=== PATIENT | male | born 1930 | race Caucasian/White ===

== ENCOUNTER 2018-03-14 15:00 | Inpatient (IN) ==
--- NOTE | 2018-03-15 19:31 | Internal Med History&Physical ---
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 Now has residual right hang grasp diminished and decreased strength right lower extremity and balance and fatigue issues. He will have PT, OT, RT and speech therapy. He is anticoagulated with Eliquis and the dose was recently increased. 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 He is declining in his functionality particularly of the hands and lower extremities. Prior to his CVA he was using a walker, able to drive his car, mow his lawn and ride his Gator. His CMT is an additional debility in addition to his recent CVA. (3) Atrial fibrillation Current visit: Yes Status: Chronic Chronic atrial fibrillation and is anticoagulated with Eliquis and the dose was increased from 2.5 twice a day to 5 mg twice a day. No angina or CHF or palpitations or symptoms related to his heart. His echocardiogram showed 65% ejection fraction and mild left to right shunt on bubble test. Qualifiers: Atrial fibrillation type: chronic Qualified Code(s): I48.2 - Chronic atrial fibrillation (4) Coronary artery disease Current visit: Yes Status: Chronic Known history of carotid artery disease and previous stent placement. Previously he was on Plavix that was discontinued by his refrigerator room clerk a few months ago. Remains on Eliquis. Previously he was on Vytorin. This apparently was discontinued when he was at [facility]. I am not sure why. I would recommend that he restart it but will defer judgment to the specialist for now. No angina or CHF or any cardiac symptoms noted Qualifiers: Coronary Disease-Associated Artery/Lesion type: unspecified vessel or lesion type [place] vs. transplanted heart: [place] heart Associated angina: without angina Qualified Code(s): I25.10 - Atherosclerotic heart disease of [place] coronary artery without angina pectoris (5) Hypertension Current visit: Yes Status: Chronic Patient has a history of hypertension. Previously his medication list also included triamterene hydrochlorothiazide and enalapril. Those were discontinued at [facility] on transfer. He may have had some hypotension. We will monitor his blood pressure and restart if indicated. Qualifiers: Hypertension type: essential hypertension Qualified Code(s): I10 - Essential (primary) hypertension (6) Obstructive sleep apnea treated with BiPAP Current visit: Yes Status: Chronic Patient has a history of sleep apnea and uses BiPAP. He will use his machine from home. (7) Swelling of joint, hand, right Current visit: Yes Status: Acute Patient has noticed warmth and swelling in his index MP joint. No history of trauma. He thinks he may have had some gout in his right foot previously. Consideration includes osteoarthritis, gout, acute rheumatoid arthritis. Dr. Galvez will be seeing the patient and we will get his opinion. (8) On apixaban therapy Current visit: No Status: Acute Internal Medicine - H&P: HPI Chief complaint: I am here for therapy after my stroke Admitted From: Hospital to Hospital Transfer Plans for Post Hospital Care: Home History of present illness: Mr. Joshi is a 87 year old male with a known history of Qkkysdu-Bccti-Syksq syndrome, atrial fibrillation, previous CVA, hypertension, coronary artery disease and sleep apnea. Last Wednesday on his 's birthday and having been to [place] for a meal he came home and he rode the gator to the trash can as he did not feel well. And then when he was in the bathroom he felt wobbly and unsteady and fell. He was on his knees and he crawled to the family room as he could not get up. He experienced right leg weakness, right arm and hand weakness, slurred speech and and imbalance. He was brought to the emergency room via squad. He eventually was transferred to [facility]. During that workup use found to have had a left frontal CVA and a right cerebellar lacunar with small hemorrhage formation. His slurred speech basically resolved, he has gained some strength back on his right upper and lower extremities. However he is unable to walk or make transfers from the wheelchair to the bed, etc. At [facility] they increased his Eliquis. Most of his medications were continued. He is having no cardiac, respiratory, GI or symptoms acutely. Prior to this event he had ongoing generalized weakness from Elhugax-Srufx-Pftey syndrome but was still able to use a walker, ambulate well enough to drive a car, operate his gator, etc. Past Med Surg Social Fam HX - Past Medical History Medical history: arthritis, atrial fibrillation, coronary artery disease, CVA, hypertension, TIA, other (History of Chdnqij-Grjwp-Esozj syndrome) Additional medical history: CMT Psychiatric history: no psych history - Past Surgical History Surgical History: orthopedic, other (Back surgery 1990, arthroscopic knee surgery 1981, right knee replacement 1998, left knee surgery partial replacement 2006) Additional surgical history: LT KNEE SURG - Social History Smoking Status: Former smoker Smokeless Tobacco Status: No Alcohol use: none Drug use: none Occupational status: retired Current living situation: With Family Activity Level: Uses cane/walker - Family History Father Living Status: Age at : 74 Cause of : Suicide Hx Family Cardiac Disorders: Yes (brothers) Hx Family Respiratory Disorders: No Hx Family Cancer: Yes (brother) Hx Family Endocrine Disorder: Yes (father) Hx Family Neuromuscular Disorders: Yes (nephew,self) Hx Family Neurologic Disorders: Yes (nephew,self,cousins) Hx Family HEENT Disorders: No Hx Family Psychosocial Disorders: Yes (Depression, suicide) Mother Living Status: Age at : 80 Cause of : Stroke Internal Medicine - H&P: Meds Calcium Carbonate [Calcium] 600 mg PO DAILY 06/29/16 [History] Cyanocobalamin (Vitamin B-12) [Vitamin B12] 5,000 mcg PO DAILY 06/29/16 [History ] Docusate Sodium [Dok] 100 mg PO DAILY 06/29/16 [History] Doxazosin Mesylate [Cardura] 2 mg PO HS 06/29/16 [History] Metoprolol [Lopressor] 25 mg PO DAILY 06/29/16 [History] Multivitamin [Multi-Day Vitamins] 1 each PO DAILY 06/29/16 [History] Potassium Chloride [K-Tab ER] 10 meq PO DAILY 06/29/16 [History] Pregabalin [Lyrica] 75 mg PO BID 06/29/16 [History] raNITIdine HCl [Zantac] 150 mg PO BID 06/29/16 [History] amLODIPine [Norvasc] 5 mg PO DAILY 10/05/17 [History] Apixaban [Eliquis] 5 mg PO BID 03/15/18 [History] 3 Allergy/AdvReac Type Severity Reaction Status Date / Time No Known Allergies Allergy Verified 10/05/17 11:04 - Constitutional Constitutional: weakness (Generalized weakness from CMT with added weakness in right upper lower extremity as in history of present illness), no fever(s), no night sweats - EENT Eyes: no blurry vision, no change in vision, no diplopia Ears: no ear discharge, no ear pain Nose, mouth and throat: other (Thinks his speech is back to normal), no change in voice, no dysphagia, no hoarseness, no sore throat - Cardiovascular Cardiovascular ROS IM: no chest pain, no dyspnea, no dyspnea on exertion, no edema, no palpitations - Respiratory Respiratory: no dyspnea, no hemoptysis, no dyspnea on exertion, no chest congestion - Gastrointestinal Gastrointestinal: no constipation, no diarrhea - Genitourinary Genitourinary ROS male: difficulty urinating, no urinary frequency, no urinary urgency - Musculoskeletal Musculoskeletal ROS IM: as per HPI, muscle weakness - Integumentary Integumentary IM: no rash - Neurological Neurological ROS: as per HPI, abnormal gait, focal weakness, no abnormal speech , no confusion, no loss of vision, no radicular pain, no tremor(s) - Constitutional Vitals: Temp Pulse Resp BP Pulse Ox 99.7 F H 99 16 137/77 95 03/15/18 19:15 03/15/18 19:15 03/15/18 19:15 03/15/18 19:15 03/15/18 19:15 General appearance: Present: A&O X 3, no acute distress, answers questions appropriately - Head Head exam: Present: atraumatic, normal inspection - Eye Eye exam: Present: EOMI. Absent: scleral icterus - ENT ENT exam: Present: mucous membranes moist, normal oropharynx, TM's normal bilaterally - Neck Neck exam general surgery: Absent: lymphadenopathy, tenderness, nuchal rigidity , thyromegaly - Respiratory Respiratory exam: Present: CTAB. Absent: respiratory distress - Cardiovascular Cardiovascular exam: Present: irregular rhythm, +S1, +S2. Absent: systolic murmur - GI/Abdominal GI/Abdominal exam: Present: soft. Absent: hepatomegaly, tenderness - Extremities Exam Extremities exam: Present: joint swelling (Right index finger at MP joint is a bit warm and swollen and boggy. He has generalized edema/swelling over the dorsum of the hand as well). Absent: calf tenderness, pedal edema Additional comments: Generalized atrophy of both hands from his chronic CMT. - Neurological Exam Neurological exam: Present: alert, CN II-XII intact, oriented X3. Absent: facial droop, speech deficit Additional comments: His speech appears to be normal with good articulation, his facial expressions appear to be different somehow when he speaks compared to his baseline. No unilateral deficit. Both hands show decreased hand grasp the right worse than left compared to his baseline with CMT. Lower extremities show the right quads and hip flexor is weaker on the right side compared to left side. Full extension at the knee in seated position but slightly weaker on the right lower extremity. He has bilateral foot drop. Internal Med - H&P Results - Labs CBC & Chem 7: 03/17/18 05:05 03/17/18 05:05
[2018-03-15] MEDS: Famotidine 20 MG TABLET PO SCH (20:51)
[2018-03-15] MEDS: Apixaban 2.5 MG TABLET PO SCH (20:51)
[2018-03-15] MEDS: Pregabalin 75 MG CAPSULE PO SCH (20:51)
[2018-03-16] MEDS: Multivit/Ca/Min/Fe/FA 1 TAB TABLET PO SCH (09:29)
[2018-03-16] MEDS: Pregabalin 75 MG CAPSULE PO SCH ×2 (09:29→19:42)
[2018-03-16] MEDS: Apixaban 2.5 MG TABLET PO SCH ×2 (09:29→19:42)
[2018-03-16] MEDS: Famotidine 20 MG TABLET PO SCH ×2 (09:29→19:42)
[2018-03-16] MEDS: amLODIPine 5 MG TABLET PO SCH (09:29)
--- NOTE | 2018-03-16 10:28 | Internal Med Progress Note ---
Date of Encounter: 03/16/18 Time of Encounter: 10:28 - Assessment and plan (1) Cerebrovascular accident Current Visit: Yes Status: Acute Assessment and plan: He feels that he is doing better with physical therapy and occupational therapy. He still is unsteady on his feet and cannot walk with a walker or do transfers from bed to wheelchair and vice versa. No new changes neurologically. Qualifiers: CVA mechanism: embolism Precerebral and cerebral artery: anterior cerebral artery Laterality of affected vessel: left Qualified Code(s): I63.422 - Cerebral infarction due to embolism of left anterior cerebral artery (2) Charcot Natali Tooth muscular atrophy Current Visit: Yes Status: Chronic (3) Atrial fibrillation Current Visit: Yes Status: Chronic Assessment and plan: No angina or CHF. Rate controlled. Asymptomatic. Qualifiers: Atrial fibrillation type: chronic Qualified Code(s): I48.2 - Chronic atrial fibrillation (4) Coronary artery disease Current Visit: Yes Status: Chronic Assessment and plan: No angina or CHF. Atrial fibrillation is controlled. Qualifiers: Coronary Disease-Associated Artery/Lesion type: unspecified vessel or lesion type [place] vs. transplanted heart: [place] heart Associated angina: without angina Qualified Code(s): I25.10 - Atherosclerotic heart disease of [place] coronary artery without angina pectoris (5) Hypertension Current Visit: Yes Status: Chronic Assessment and plan: Pressure is under good control. We will continue to monitor as his triamterene hydrochlorothiazide and enalapril were held on his transfer from [place] Qualifiers: Hypertension type: essential hypertension Qualified Code(s): I10 - Essential (primary) hypertension (6) Obstructive sleep apnea treated with BiPAP Current Visit: Yes Status: Chronic (7) Swelling of joint, hand, right Current Visit: Yes Status: Acute Assessment and plan: This is stable. We will have Dr. Galvez check him. (8) On apixaban therapy Current Visit: No Status: Acute - Subjective Interval history: Patient states he slept like a log last night. He denies any cardiac or respiratory symptoms. He thinks his right hand is weaker. He thinks it is from CMT. He is now thinking that he did have some weakness in the right upper extremity in addition to the right lower extremity with his acute CVA. Denies any speech or swallowing problems this morning. - Constitutional Vitals: Temp Pulse Resp BP Pulse Ox 98.5 F 73 16 100/54 97 03/16/18 07:30 03/16/18 07:30 03/16/18 07:30 03/16/18 07:30 03/16/18 07:30 General appearance: Present: A&O X 3, no acute distress - Respiratory Respiratory exam: Present: CTAB - Cardiovascular Cardiovascular exam: Present: irregular rhythm, +S1, +S2 - Extremities Exam Additional comments: He is wearing his braces on both lower extremities. His hands show chronic atrophy from CMT. His right hand grasp is slightly less than the left and both are weak. He cannot make a full fist. Lower extremities as tested in seated position show right quads to be weaker than the left at about 3/5. Able to extend at the knee in seated position bilaterally - Neurological Exam Neurological exam: Present: CN II-XII intact (Speech appears normal.) Additional comments: See the extremity examination. Internal Medicine: Result - Labs CBC & Chem 7: 03/17/18 05:05 03/17/18 05:05 Consult Discharge Plan - Plan Referrals: Tee Gasca MD [Primary Care Provider] -
[2018-03-16] MEDS ORDERED: Menthol 9.1 MG LOZENGE PO PRN (18:41)
[2018-03-17 05:40] LABS: Basophils % 0.5 %; Eosinophils # 0.3 K/mcL (0.0-0.6); Eosinophils % 4.1 %; Hematocrit 31.8 % (37.5-50.1); Hemoglobin 10.7 g/dL (12.9-16.9); Immature Granulocytes % 0.3 % (0-4); Lymphocytes # 1.4 K/mcL (0.6-4.6); Mean Corpuscular HGB Conc 33.6 g/dL (31.6-35.5); Mean Corpuscular Hemoglobin 29.6 pg (28.0-33.3); Mean Corpuscular Volume 87.8 fL (83.0-100.0); Mean Platelet Volume 11.1 fL (9.4-12.4); Monocytes # 0.6 K/mcL (0.0-1.3); Monocytes % 7.1 %; Neutrophils # 5.4 K/mcL (1.6-8.9); Platelet Count 173 K/mcL (140-400); Red Blood Count 3.62 M/mcL (4.19-5.50); Red Cell Distribution Width 14.1 % (11.5-14.5)
[2018-03-17 05:58] LABS: BUN/Creatinine Ratio 25 (6-26); Blood Urea Nitrogen 20 mg/dL (8-23); Calcium 8.8 mg/dL (8.6-10.3); Carbon Dioxide 27 mEq/L (23-29); Chloride 101 mEq/L (98-107); Glucose 111 mg/dL (70-105); Osmolality,Calculated 281 (280-300); Potassium 3.2 mEq/L (3.5-5.1); Sodium 134 mEq/L (136-145); eGFR For African Americans > 60 (> 60); eGFR For Non-African Americans > 60 (> 60)
[2018-03-17] MEDS: Famotidine 20 MG TABLET PO SCH ×2 (08:53→21:00)
[2018-03-17] MEDS: Apixaban 2.5 MG TABLET PO SCH ×2 (08:53→21:00)
[2018-03-17] MEDS: amLODIPine 5 MG TABLET PO SCH (08:53)
[2018-03-17] MEDS: Pregabalin 75 MG CAPSULE PO SCH ×2 (08:54→21:00)
[2018-03-17] MEDS: Multivit/Ca/Min/Fe/FA 1 TAB TABLET PO SCH (08:54)
--- NOTE | 2018-03-17 17:20 | Physcial Medicine-Consult Note ---
Date of Encounter: 03/17/18 Time of Encounter: 17:16 Physical Medicine - AP (1) Cerebrovascular accident Status: Acute Assessment and plan: Good start with therapies. Feels steady in the parallel bars. Continue Rehab. Swelling in right hand. Will check xray. Looks like gout and he thinks he's had gout in the past. Code(s): I63.9 - Cerebral infarction, unspecified SNOMED Code(s): 799645084 Physical Medicine - HPI - Data of Consult Requesting Physician: Tee Gasca MD Primary Care Provider: Tee Gasca MD - Consult Narrative History of present illness: Mr. Joshi is a 87 year old RH male admitted for rehab following a left frontal CVA and right cerebellar lacune with small hemmorrhagic transformation. He is complaining of right hand discomfort and admits to diminished sensation. He is aware of coughing after meals. He has underlying Charcot-Natali- Tooth disease with disyal LE and UE muscle wasting. CC: Tee Gasca MD Past Med Surg Social Fam HX - Past Medical History Attestation: Yes The following information was validated with the patient. Medical history: arthritis, atrial fibrillation, coronary artery disease, CVA, hypertension, migraine, TIA, other Additional medical history: CMT Psychiatric history: no psych history - Past Surgical History Additional surgical history: LT KNEE SURG - Social History Smoking Status: Former smoker Smokeless Tobacco Status: No Alcohol use: none Drug use: none - Family History Father Living Status: Hx Family Cardiac Disorders: Yes (brothers) Hx Family Respiratory Disorders: No Hx Family Cancer: Yes (brother) Hx Family Endocrine Disorder: Yes (father) Hx Family Neuromuscular Disorders: Yes (nephew,self) Hx Family Neurologic Disorders: Yes (nephew,self,cousins) Hx Family HEENT Disorders: No Medications and Allergies Calcium Carbonate [Calcium] 600 mg PO DAILY 06/29/16 [History] Clopidogrel [Plavix] 75 mg PO DAILY 06/29/16 [History] Cyanocobalamin (Vitamin B-12) [Vitamin B12] 5,000 mcg PO DAILY 06/29/16 [History ] Docusate Sodium [Dok] 100 mg PO DAILY 06/29/16 [History] Doxazosin Mesylate [Cardura] 2 mg PO HS 06/29/16 [History] Enalapril Maleate [Vasotec] 20 mg PO BID 06/29/16 [History] Ezetimibe/Simvastatin [Vytorin 10-20 mg Tablet] 1 each PO DAILY 06/29/16 [ History] Metoprolol [Lopressor] 25 mg PO DAILY 06/29/16 [History] Multivitamin [Multi-Day Vitamins] 1 each PO DAILY 06/29/16 [History] Potassium Chloride [K-Tab ER] 10 meq PO DAILY 06/29/16 [History] Pregabalin [Lyrica] 75 mg PO BID 06/29/16 [History] Triamterene/HCTZ 37.5/25mg [Dyazide] 1 each PO DAILY 06/29/16 [History] raNITIdine HCl [Zantac] 150 mg PO BID 06/29/16 [History] Tramadol HCl [Ultram] 50 mg PO BID PRN #10 tab 02/24/17 [Rx] amLODIPine [Norvasc] 5 mg PO DAILY 10/05/17 [History] Apixaban [Eliquis] 5 mg PO BID 03/15/18 [History] 3 Allergy/AdvReac Type Severity Reaction Status Date / Time No Known Allergies Allergy Verified 10/05/17 11:04 All systems: reviewed and no additional remarkable complaints except as stated Physical Medicine - Exam - Constitutional Vitals: Temp Pulse Resp BP Pulse Ox 98.1 F 63 16 124/58 95 03/17/18 06:37 03/17/18 06:37 03/16/18 18:30 03/17/18 06:37 03/17/18 06:37 General appearance: average body habitus, cooperative, no acute distress - Head Head exam: Present: atraumatic, normocephalic - Eye Eye exam: Present: EOMI - ENT ENT exam: Present: mucous membranes moist Additional comments: Tongue protrudes midline. - Neck Neck exam: Present: full ROM. Absent: tenderness - Respiratory Respiratory exam: Present: CTAB. Absent: respiratory distress, rhonchi - Cardiovascular Cardiovascular exam: Present: RRR - GI/Abdominal GI/Abdominal exam: Present: normal bowel sounds, soft - Extremities Exam Extremities exam: Present: joint swelling, tenderness - Expanded Upper Extremity Exam Hand wrist exam: Present: deformity, erythema, swelling, tenderness. Absent: full ROM - Neurological Exam Neurological exam: Present: abnormal gait, alert, motor sensory deficit, oriented X3. Absent: reflexes normal, facial droop, speech deficit - Psychiatric Psychiatric exam: Present: normal affect, normal mood - Skin Skin exam: Present: intact Physical Medicine - Results - Labs CBC & Chem 7: 03/17/18 05:05 03/17/18 05:05 Labs: Short CBC 03/17/18 Range/Units 05:05 WBC 7.7 (4.3-11.1) K/mcL Hgb 10.7 L (12.9-16.9) g/dL Hct 31.8 L (37.5-50.1) % Plt Count 173 (140-400) K/mcL Neutrophils # 5.4 (1.6-8.9) K/mcL BMP 03/17/18 05:05 Sodium 134 L Potassium 3.2 L Chloride 101 Carbon Dioxide 27 BUN 20 Creatinine 0.80 Glucose 111 H Calcium 8.8 Anemia, Hyponatrmia, hypokalemia Consult Discharge Plan - Plan Referrals: Tee Gasca MD [Primary Care Provider] -
--- NOTE | 2018-03-17 18:06 | Internal Med Progress Note ---
Date of Encounter: 03/17/18 Time of Encounter: 18:00 - Assessment and plan (1) Cerebrovascular accident Current Visit: Yes Status: Acute Assessment and plan: Continues with PT and OT and recreational therapy and speech therapy. Still cannot walk with his walker. Cannot make transfers from wheelchair to bed. He apparently is doing some walking on the parallel bars. He feels like he is doing well. Speech has good articulation. Qualifiers: CVA mechanism: embolism Precerebral and cerebral artery: anterior cerebral artery Laterality of affected vessel: left Qualified Code(s): I63.422 - Cerebral infarction due to embolism of left anterior cerebral artery (2) Swelling of joint, hand, right Current Visit: Yes Status: Acute Assessment and plan: Dr. Galvez evaluated him and felt that he may have gout. X-rays have been ordered. I suggested injection with steroid if appropriate. (3) Atrial fibrillation Current Visit: Yes Status: Chronic Assessment and plan: Controlled rate. No CHF or angina. No cardiac symptoms. Qualifiers: Atrial fibrillation type: chronic Qualified Code(s): I48.2 - Chronic atrial fibrillation (4) Charcot Natali Tooth muscular atrophy Current Visit: Yes Status: Chronic (5) Coronary artery disease Current Visit: Yes Status: Chronic Assessment and plan: No angina or CHF Qualifiers: Coronary Disease-Associated Artery/Lesion type: unspecified vessel or lesion type [place] vs. transplanted heart: [place] heart Associated angina: without angina Qualified Code(s): I25.10 - Atherosclerotic heart disease of [place] coronary artery without angina pectoris (6) Hypertension Current Visit: Yes Status: Chronic Assessment and plan: Hypertension under appropriate control despite holding triamterene hydrochlorothiazide and enalapril on transfer from [facility]. Qualifiers: Hypertension type: essential hypertension Qualified Code(s): I10 - Essential (primary) hypertension (7) Obstructive sleep apnea treated with BiPAP Current Visit: Yes Status: Chronic (8) On apixaban therapy Current Visit: No Status: Acute - Subjective Interval history: Patient denies any cardiac or respiratory symptoms. His bowels are moving appropriately but not as frequent as at home. No urinary problems. His biggest concern is lack of balance and inability to walk the present time. He did walk using the parallel bars doing 3 passes. He is not able to do transfers from wheelchair to the bed though. His baseline at home has been using his Rollator/walker and even driving. His right index finger MP joint is still warm and swollen. He thinks his hand grasp on the right side is less than his left and less than baseline. - Constitutional Vitals: Temp Pulse Resp BP Pulse Ox 98.1 F 63 16 124/58 95 03/17/18 06:37 03/17/18 06:37 03/16/18 18:30 03/17/18 06:37 03/17/18 06:37 General appearance: Present: A&O X 3, no acute distress - Respiratory Respiratory exam: Present: CTAB - Cardiovascular Cardiovascular exam: Present: irregular rhythm, +S1, +S2 - GI/Abdominal GI/Abdominal exam: Present: soft. Absent: tenderness (As examined in seated position) - Extremities Exam Additional comments: Right index finger at MP joints is slightly red and boggy. He has slightly decreased range of motion and making a fist. Has some mild swelling over the dorsum of the hand compared to the left. - Neurological Exam Additional comments: He is articulating well regarding his speech, but something just seems different in his facial expression when speaking. It is not a unilateral deficit though. His noticed this also. Chronic atrophy of both hands and forearms. Hang grasp slightly less on the right compared to the left and overall diminished from CMT. He can raise his thighs off the wheelchair, right slightly weak compared to left. He can fully extend both lower legs in seated position. I did not evaluate his gait or balance tonight Internal Medicine: Result - Labs CBC & Chem 7: 03/17/18 05:05 03/17/18 05:05 Labs: Short CBC 03/17/18 Range/Units 05:05 WBC 7.7 (4.3-11.1) K/mcL Hgb 10.7 L (12.9-16.9) g/dL Hct 31.8 L (37.5-50.1) % Plt Count 173 (140-400) K/mcL Neutrophils # 5.4 (1.6-8.9) K/mcL BMP 03/17/18 05:05 Sodium 134 L Potassium 3.2 L Chloride 101 Carbon Dioxide 27 BUN 20 Creatinine 0.80 Glucose 111 H Calcium 8.8 Labs were reviewed. His potassium is slightly low at 3.2. Consult Discharge Plan - Plan Referrals: Tee Gasca MD [Primary Care Provider] -
--- NOTE | 2018-03-18 07:58 | Internal Med Progress Note ---
Date of Encounter: 03/18/18 Time of Encounter: 07:53 - Assessment and plan (1) Cerebrovascular accident Current Visit: Yes Status: Acute Assessment and plan: He is showing improvement particularly with transfers this morning. Continue with PT, OT, RT and speech therapy. (2) Swelling of joint, hand, right Current Visit: Yes Status: Acute Assessment and plan: X-rays do not show acute change. No erosion. Possibly Dr. Galvez will inject this joint. Therapy is going to try paraffin treatment today (3) Atrial fibrillation Current Visit: Yes Status: Chronic Assessment and plan: Stable without angina or CHF. Already anticoagulated. 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 Vitals are stable. Qualifiers: Coronary Disease-Associated Artery/Lesion type: unspecified vessel or lesion type [place] vs. transplanted heart: [place] heart Associated angina: without angina Qualified Code(s): I25.10 - Atherosclerotic heart disease of [place] coronary artery without angina pectoris (6) Hypertension Current Visit: Yes Status: Chronic Assessment and plan: Blood pressure is under adequate control. Qualifiers: Hypertension type: essential hypertension Qualified Code(s): I10 - Essential (primary) hypertension (7) Obstructive sleep apnea treated with BiPAP Current Visit: Yes Status: Chronic (8) On apixaban therapy Current Visit: No Status: Acute (9) Constipation Current Visit: Yes Status: Acute Assessment and plan: He has not had a bowel movement for a few days. If he does not have a bowel movement after lunch he wants to try something. I suggested a dose of milk of magnesia. Qualifiers: Constipation type: other constipation type Qualified Code(s): K59.09 - Other constipation - Subjective Interval history: Patient has no new complaints. Denies any cardiac or respiratory symptoms. He is currently getting dressed using the sock carole. Therapists state that he is doing markedly improved today with his standing transfers. His bowels have not moved for a couple of days and after lunch he wants to try something. I suggested milk of magnesia. - Constitutional Vitals: Temp Pulse Resp BP Pulse Ox 98.1 F 77 17 145/78 95 03/17/18 19:22 03/17/18 19:22 03/17/18 19:22 03/17/18 19:22 03/17/18 19:22 General appearance: Present: A&O X 3, no acute distress - Respiratory Respiratory exam: Present: CTAB - Cardiovascular Cardiovascular exam: Present: irregular rhythm, +S1, +S2 - Extremities Exam Additional comments: He still has mild swelling over the dorsum of the right hand. He is using his hands as well as he can though and not complaining of pain. 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 I did not do a full neurological exam today as he was in the process of getting dressed. Physical therapy states he is doing much better with his standing transfers. Internal Medicine: Result - Labs CBC & Chem 7: 03/17/18 05:05 03/17/18 05:05 Labs: Today's lab is pending. - Impressions Impressions Hand X-Ray 03/17/18 17:12 IMPRESSION: No acute osseous abnormality. D/ / Dada Herrera MD / Dada Herrera MD Interpreting Provider: Dada Herrera MD Consult Discharge Plan - Plan Referrals: Tee Gasca MD [Primary Care Provider] -
[2018-03-18] MEDS: Apixaban 2.5 MG TABLET PO SCH ×2 (09:18→20:21)
[2018-03-18] MEDS: Famotidine 20 MG TABLET PO SCH ×2 (09:19→20:20)
[2018-03-18] MEDS: amLODIPine 5 MG TABLET PO SCH (09:19)
[2018-03-18] MEDS: Multivit/Ca/Min/Fe/FA 1 TAB TABLET PO SCH (09:19)
[2018-03-18] MEDS: Pregabalin 75 MG CAPSULE PO SCH ×2 (09:19→20:21)
[2018-03-18 10:25] LABS: Basophils % 0.5 %; Eosinophils # 0.3 K/mcL (0.0-0.6); Eosinophils % 4.6 %; Hematocrit 34.3 % (37.5-50.1); Hemoglobin 11.5 g/dL (12.9-16.9); Immature Granulocytes % 0.4 % (0-4); Lymphocytes # 1.2 K/mcL (0.6-4.6); Lymphocytes % 16.6 %; Mean Corpuscular HGB Conc 33.5 g/dL (31.6-35.5); Mean Corpuscular Hemoglobin 29.3 pg (28.0-33.3); Mean Corpuscular Volume 87.5 fL (83.0-100.0); Mean Platelet Volume 10.9 fL (9.4-12.4); Monocytes # 0.5 K/mcL (0.0-1.3); Monocytes % 6.1 %; Neutrophils # 5.3 K/mcL (1.6-8.9); Platelet Count 193 K/mcL (140-400); Red Blood Count 3.92 M/mcL (4.19-5.50); Red Cell Distribution Width 14.3 % (11.5-14.5); Segmented Neutrophils % 71.8 %
[2018-03-18 10:40] LABS: BUN/Creatinine Ratio 24 (6-26); Blood Urea Nitrogen 17 mg/dL (8-23); Carbon Dioxide 25 mEq/L (23-29); Chloride 101 mEq/L (98-107); Glucose 193 mg/dL (70-105); Osmolality,Calculated 289 (280-300); Potassium 3.3 mEq/L (3.5-5.1); Sodium 136 mEq/L (136-145); eGFR For African Americans > 60 (> 60); eGFR For Non-African Americans > 60 (> 60)
[2018-03-18] MEDS: MOM Conc 10 ML UD.LIQ PO PRN (20:19)
[2018-03-19] MEDS: Multivit/Ca/Min/Fe/FA 1 TAB TABLET PO SCH (08:52)
[2018-03-19] MEDS: Apixaban 2.5 MG TABLET PO SCH ×2 (08:52→19:40)
[2018-03-19] MEDS: Pregabalin 75 MG CAPSULE PO SCH ×2 (08:52→19:40)
[2018-03-19] MEDS: amLODIPine 5 MG TABLET PO SCH (08:52)
[2018-03-19] MEDS: Famotidine 20 MG TABLET PO SCH ×2 (08:52→19:40)
--- NOTE | 2018-03-19 11:50 | Internal Med Progress Note ---
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 (2) Hypokalemia Current Visit: Yes Status: Acute Assessment and plan: Improved. Magnesium this morning was normal. Will follow (3) Atrial fibrillation Current Visit: Yes Status: Chronic Assessment and plan: Chronic and with treatment with apixaban. Qualifiers: Atrial fibrillation type: chronic Qualified Code(s): I48.2 - Chronic atrial fibrillation (4) Coronary artery disease Current Visit: Yes Status: Chronic Assessment and plan: Clinically stable with no current signs or symptoms of coronary disease.. We will continue home regimen and follow. Qualifiers: Coronary Disease-Associated Artery/Lesion type: unspecified vessel or lesion type [place] vs. transplanted heart: [place] heart Associated angina: without angina Qualified Code(s): I25.10 - Atherosclerotic heart disease of [place] coronary artery without angina pectoris (5) Hypertension Current Visit: Yes Status: Chronic Assessment and plan: Clinically stable. We will continue current regimen and follow. Qualifiers: Hypertension type: essential hypertension Qualified Code(s): I10 - Essential (primary) hypertension (6) Obstructive sleep apnea treated with BiPAP Current Visit: Yes Status: Chronic Assessment and plan: On his home machine. (7) Constipation Current Visit: Yes Status: Acute Assessment and plan: Advised repeatedly use of laxative, as needed. Qualifiers: Constipation type: other constipation type Qualified Code(s): K59.09 - Other constipation - Subjective Interval history: Patient is doing well. He notes right shoulder pain which is been present since August. There is also mild constipation for which took milk of magnesia , last night. He denies any urinary problems or other problems. He is tolerating therapy well. Patient has no complaint of chest discomfort, dyspnea, orthopnea, palpitations, nausea or vomiting, constipation or diarrhea, other changes in bowel habits, difficulty with urination, rash or itching, or other new complaints, except as mentioned above. Review of systems is otherwise negative. - Constitutional Vitals: Temp Pulse Resp BP Pulse Ox 97.5 F L 70 21 121/76 98 03/19/18 08:07 03/19/18 08:07 03/19/18 08:07 03/19/18 08:07 03/19/18 08:07 General appearance: Present: A&O X 3, no acute distress Exam: Examination: (Except as mentioned above): General: In no apparent distress. Alert and oriented 3. Nondiaphoretic. Head: Atraumatic and normocephalic. Respiratory: No use of accessory muscles. Lungs are clear throughout. Normal airflow. Cardiovascular: Irregularly irregular consistent with atrial fibrillation. He is without murmur appreciated. Abdomen: Bowel sounds are normal. No hepatosplenomegaly mass or tenderness appreciated. Obese and therefore difficult to palpate deeply. Patient is examined upright in chair and this also limits exam. Extremities: No cyanosis clubbing or edema. Neurological: The patient is wearing AFOs and has diminished function, mildly, consistent with CMT. Skin: Warm and non-diaphoretic with no new lesions noted. Internal Medicine: Result - Labs CBC & Chem 7: 03/18/18 09:59 03/19/18 04:25 Labs: BMP 03/19/18 04:25 Potassium 3.8 Consult Discharge Plan - Plan Referrals: Tee Gasca MD [Primary Care Provider] -
[2018-03-20] MEDS: Pregabalin 75 MG CAPSULE PO SCH ×2 (08:06→19:21)
[2018-03-20] MEDS: Multivit/Ca/Min/Fe/FA 1 TAB TABLET PO SCH (08:06)
[2018-03-20] MEDS: amLODIPine 5 MG TABLET PO SCH (08:07)
[2018-03-20] MEDS: Apixaban 2.5 MG TABLET PO SCH ×2 (08:07→19:21)
[2018-03-20] MEDS: MOM Conc 10 ML UD.LIQ PO PRN (08:07)
[2018-03-20] MEDS: Famotidine 20 MG TABLET PO SCH ×2 (08:07→19:21)
--- NOTE | 2018-03-20 14:38 | Internal Med Progress Note ---
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 notes right shoulder pain but patient had denied. Apparently, at [facility] called this rotator cuff problem but states that he could not have surgery (presumed because of stroke). They recommended injections. Again, will defer to Dr. Gasca. (2) Hypokalemia Current Visit: Yes Status: Acute Assessment and plan: Improved. Because of his hypokalemia, we will not increase his diuresis, for now. Will ask that this be considered by Dr. Gasca. (3) Atrial fibrillation Current Visit: Yes Status: Chronic Qualifiers: Atrial fibrillation type: chronic Qualified Code(s): I48.2 - Chronic atrial fibrillation (4) Coronary artery disease Current Visit: Yes Status: Chronic Assessment and plan: Clinically stable with no current signs or symptoms of coronary disease.. We will continue home regimen and follow. Qualifiers: Coronary Disease-Associated Artery/Lesion type: unspecified vessel or lesion type [place] vs. transplanted heart: [place] heart Associated angina: without angina Qualified Code(s): I25.10 - Atherosclerotic heart disease of [place] coronary artery without angina pectoris (5) Hypertension Current Visit: Yes Status: Chronic Assessment and plan: Clinically stable. We will continue current regimen and follow. Qualifiers: Hypertension type: essential hypertension Qualified Code(s): I10 - Essential (primary) hypertension (6) Obstructive sleep apnea treated with BiPAP Current Visit: Yes Status: Chronic Assessment and plan: On his home machine. (7) Constipation Current Visit: Yes Status: Acute Assessment and plan: Improved. Will follow clinically. Qualifiers: Constipation type: other constipation type Qualified Code(s): K59.09 - Other constipation - Subjective Interval history: Patient is feeling better than yesterday. He has moved his bowels. He notes no neuropathic changes in hands and especially not in feet. He has edema which she admits to and states this is like he frequently has at home. Left is usually more than right. He denies dyspnea on exertion or chest discomfort, etc. He feels that his cold symptoms are better. Nursing expresses concern about his edema in his legs. Patient has no complaint of chest discomfort, dyspnea, orthopnea, palpitations, nausea or vomiting, constipation or diarrhea, other changes in bowel habits, difficulty with urination, rash or itching, or other new complaints, except as mentioned above. Review of systems is otherwise negative. - Constitutional Vitals: Temp Pulse Resp BP Pulse Ox 98.4 F 82 16 121/77 95 03/20/18 07:12 03/20/18 07:12 03/20/18 07:12 03/20/18 07:12 03/20/18 07:12 General appearance: Present: A&O X 3, no acute distress Exam: Examination: (Except as mentioned above): General: In no apparent distress. Alert and oriented 3. Nondiaphoretic. Head: Atraumatic and normocephalic. Respiratory: No use of accessory muscles. Lungs are clear throughout. Normal airflow. Cardiovascular: Irregularly irregular rhythm as before, without murmur appreciated. Abdomen: Bowel sounds are normal. No hepatosplenomegaly mass or tenderness appreciated. Obese and therefore difficult to palpate deeply. Extremities: No cyanosis or clubbing. He has 1+ edema at the left which is greater than right ankle and lower calf. There is no cellulitis or erythema to suggest infection. Skin: Warm and non-diaphoretic with no new lesions noted. Internal Medicine: Result - Labs CBC & Chem 7: 03/18/18 09:59 03/19/18 04:25 Consult Discharge Plan - Plan Referrals: Tee Gasca MD [Primary Care Provider] -
--- NOTE | 2018-03-21 06:58 | Internal Med Progress Note ---
Date of Encounter: 03/21/18 Time of Encounter: 06:52 - Assessment and plan (1) Cerebrovascular accident Current Visit: Yes Status: Inactive Assessment and plan: Patient is showing improvement, ambulating with his walker, doing better with transfers. He still needs assistance though. Continue with PT, OT, recreational therapy and speech. (2) Swelling of joint, hand, right Current Visit: Yes Status: Acute Assessment and plan: Today he did not have a particular complaints of the right index MP joint. I am not sure if Dr. Galvez is going to inject this or not. 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 Qualifiers: Coronary Disease-Associated Artery/Lesion type: unspecified vessel or lesion type [place] vs. transplanted heart: [place] heart Associated angina: without angina Qualified Code(s): I25.10 - Atherosclerotic heart disease of [place] coronary artery without angina pectoris (6) Hypertension Current Visit: Yes Status: Chronic Assessment and plan: Intermittently his blood pressure may be mildly elevated. Overall his pressures are good. Some medication was held when he was in [place] including his triamterene hydrochlorothiazide. We will continue to monitor. Qualifiers: Hypertension type: essential hypertension Qualified Code(s): I10 - Essential (primary) hypertension (7) Obstructive sleep apnea treated with BiPAP Current Visit: Yes Status: Chronic (8) On apixaban therapy Current Visit: No Status: Acute (9) Constipation Current Visit: Yes Status: Resolved Assessment and plan: He has had a bowel movement now that he said the milk of magnesia. We will continue to use his maintenance meds to avoid constipation. Qualifiers: Constipation type: other constipation type Qualified Code(s): K59.09 - Other constipation (10) Bilateral lower extremity edema Current Visit: Yes Status: Acute Assessment and plan: He has swelling of both lower extremities, the left is worse than the right. The asymmetry is chronic for him. However with bed rest/elevation the edema is not improved. Prior to his stroke he was on triamterene hydrochlorothiazide. His pressures have been good at this point. His chronic use of amlodipine may be contributing to this as well. We will try a dose of Lasix to see if we can mobilize this fluid. We will then assess whether he needs long-term diuretic in the form of Lasix or resume his hypertensive diuretic. - Subjective Interval history: Patient states that he feels like he is getting better. He reported that he walked part way down the hallway with his walker twice. 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 Denies a cardiac respiratory symptoms. His bowels are now moving. He still has edema in lower extremities. - Constitutional Vitals: Temp Pulse Resp BP Pulse Ox 97.5 F L 74 17 159/86 95 03/20/18 18:33 03/20/18 18:33 03/20/18 18:33 03/20/18 18:33 03/20/18 18:33 General appearance: Present: A&O X 3, no acute distress - Respiratory Respiratory exam: Present: CTAB - Cardiovascular Cardiovascular exam: Present: irregular rhythm, +S1, +S2. Absent: systolic murmur - GI/Abdominal GI/Abdominal exam: Present: soft. Absent: tenderness - Extremities Exam Additional comments: Patient's chronic atrophy and weakness of all extremities from his CMT. His lower extremities show pitting edema nearly to the knee. Left is worse than the right. He has chronic hyperpigmentation from chronic venous stasis as well. - Neurological Exam Additional comments: His speech seems normal. In bed he is moving his extremities as one would expect with his CMT. I did not do full muscle strength testing today. Internal Medicine: Result - Labs CBC & Chem 7: 03/18/18 09:59 03/19/18 04:25 Consult Discharge Plan - Plan Referrals: Tee Gasca MD [Primary Care Provider] -
[2018-03-21] MEDS ORDERED: Furosemide 20 MG TABLET PO ONE ×3 (08:00→19:57)
[2018-03-21] MEDS: amLODIPine 5 MG TABLET PO SCH (08:56)
[2018-03-21] MEDS: Famotidine 20 MG TABLET PO SCH ×2 (08:56→19:28)
[2018-03-21] MEDS: Multivit/Ca/Min/Fe/FA 1 TAB TABLET PO SCH (08:56)
[2018-03-21] MEDS: Apixaban 2.5 MG TABLET PO SCH ×2 (08:56→19:28)
[2018-03-21] MEDS: Pregabalin 75 MG CAPSULE PO SCH ×2 (08:56→19:28)
--- NOTE | 2018-03-21 13:56 | Physical Med Progress Note ---
Date of Encounter: 03/21/18 Time of Encounter: 13:00 Assessment and Plan (1) Cerebrovascular accident Current Visit: Yes Status: Inactive Assessment and plan: Good progress. His ambulation is near baseline. He is still unsteady with sit to stand transfers. Continue rehab. No further treatment for right hand. 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 Bilat AFOs If he has further decline in ambulation, he may eventually need a powered mobility device. Physical Medicine-PN: Subj Interval history: C/o joint soreness in hands. Right index MP joint not sore today. - Constitutional Vitals: Vital Signs Temp Pulse Resp BP Pulse Ox 03/21/18 07:54 98.1 F 83 18 138/71 96 03/20/18 18:33 97.5 F L 74 17 159/86 95 Intake and Output 03/20/18 03/21/18 03/21/18 23:59 07:59 15:59 Intake Total 440 / 440 480 / 480 Output Total 500 / 500 Balance 440 / 440 -500 / -500 480 / 480 Intake: Oral 440 / 440 480 / 480 Output: Urine 500 / 500 Other: Meal Dinner Lunch Percent of Meal Consumed 90% 100% # Voids 1 1 - Extremities Exam Additional comments: Right index MP is much less swollen and erythematous. He still has trouble making a fist bilaterally. 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 Minimal edema. - Neurological Exam Neurological exam: Present: abnormal gait, alert, CN II-XII intact, motor sensory deficit, oriented X3. Absent: reflexes normal, facial droop, speech deficit Physical Medicine-PN: Obj Data - Labs CBC & Chem 7: 03/18/18 09:59 03/19/18 04:25 Consult Discharge Plan - Plan Referrals: Tee Gasca MD [Primary Care Provider] -
[2018-03-22 06:07] LABS: BUN/Creatinine Ratio 20 (6-26); Blood Urea Nitrogen 17 mg/dL (8-23); Calcium 8.8 mg/dL (8.6-10.3); Carbon Dioxide 30 mEq/L (23-29); Chloride 102 mEq/L (98-107); Glucose 123 mg/dL (70-105); Osmolality,Calculated 287 (280-300); Potassium 3.8 mEq/L (3.5-5.1); Sodium 137 mEq/L (136-145); eGFR For African Americans > 60 (> 60); eGFR For Non-African Americans > 60 (> 60)
[2018-03-22] MEDS: Famotidine 20 MG TABLET PO SCH ×2 (09:28→19:18)
[2018-03-22] MEDS: Apixaban 2.5 MG TABLET PO SCH ×2 (09:28→19:19)
[2018-03-22] MEDS: amLODIPine 5 MG TABLET PO SCH (09:28)
[2018-03-22] MEDS: Multivit/Ca/Min/Fe/FA 1 TAB TABLET PO SCH (09:28)
[2018-03-22] MEDS: Pregabalin 75 MG CAPSULE PO SCH ×2 (09:29→19:19)
--- NOTE | 2018-03-22 15:47 | Internal Med Progress Note ---
Date of Encounter: 03/22/18 Time of Encounter: 15:42 - Assessment and plan (1) Cerebrovascular accident Current Visit: Yes Status: Acute Assessment and plan: Patient an improvement from his CVA right hemiparesis. Transfers are at the last task to improve. Continue with the therapies. (2) Swelling of joint, hand, right Current Visit: Yes Status: Acute Assessment and plan: Improved swelling of the right hand thumb joint. (3) Atrial fibrillation Current Visit: Yes Status: Chronic Assessment and plan: Chronic atrial fibrillation without angina or CHF. He is anticoagulated with Eliquis. 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 Qualifiers: Coronary Disease-Associated Artery/Lesion type: unspecified vessel or lesion type [place] vs. transplanted heart: [place] heart Associated angina: without angina Qualified Code(s): I25.10 - Atherosclerotic heart disease of [place] coronary artery without angina pectoris (6) Hypertension Current Visit: Yes Status: Chronic Assessment and plan: Blood pressure is under adequate control. This is despite not being on triamterene hydrochlorothiazide that he was on previously. We will continue to monitor. Qualifiers: Hypertension type: essential hypertension Qualified Code(s): I10 - Essential (primary) hypertension (7) Obstructive sleep apnea treated with BiPAP Current Visit: Yes Status: Chronic (8) On apixaban therapy Current Visit: No Status: Acute (9) Constipation Current Visit: Yes Status: Resolved Assessment and plan: His bowels are moving well now. Qualifiers: Constipation type: other constipation type Qualified Code(s): K59.09 - Other constipation (10) Bilateral lower extremity edema Current Visit: Yes Status: Acute Assessment and plan: We will use Lasix on a daily when necessary basis. He prefers to use this at night so it does not disrupt his therapies and he does not had to get up and down from the wheelchair. At night he can use his urinal. We will increase the dose if it is not helpful. Electrolytes and renal function are normal. 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 He is anticoagulated with Eliquis. - Subjective Interval history: Patient states that he is getting better. He was able to walk in the hallway with his walker. He is able to go down the other pantoja toward the ER. His biggest concern is when he first gets out of bed, he feels unstable still having troubles with transfers though that is improving. He denies any cardiac or respiratory symptoms. He had a good bowel movement today. He thought he had good urine output from the Lasix last evening to get rid some edema in lower legs. No major improvement there though. He thinks the right hand thumb joint he is not as red or hot and he is getting slightly improved range of motion now. - Constitutional Vitals: Temp Pulse Resp BP Pulse Ox 98.2 F 71 16 130/76 96 03/22/18 06:47 03/22/18 06:47 03/22/18 06:47 03/22/18 06:47 03/22/18 06:47 General appearance: Present: A&O X 3, no acute distress - Respiratory Respiratory exam: Present: CTAB - Cardiovascular Cardiovascular exam: Present: irregular rhythm, +S1, +S2 - GI/Abdominal GI/Abdominal exam: Absent: tenderness - Extremities Exam Additional comments: He has his shoe and socks and posterior splints on both lower extremities. I did not undress those. He still has obvious edema, left is worse than the right chronically. Some pitting is noted some up to the knees. Internal Medicine: Result - Labs CBC & Chem 7: 03/18/18 09:59 03/22/18 05:40 Labs: BMP 03/22/18 05:40 Sodium 137 Potassium 3.8 Chloride 102 Carbon Dioxide 30 H BUN 17 Creatinine 0.83 Glucose 123 H Calcium 8.8 Laboratory was reviewed. His electrolytes and renal function tests are normal. Consult Discharge Plan - Plan Referrals: Tee Gasca MD [Primary Care Provider] -
[2018-03-22] MEDS: Furosemide 20 MG TABLET PO PRN (19:19)
--- NOTE | 2018-03-23 09:17 | Internal Med Progress Note ---
Date of Encounter: 03/23/18 Time of Encounter: 09:12 - Assessment and plan (1) Cerebrovascular accident Current Visit: Yes Status: Acute Assessment and plan: He continues to improve with his PT and OT. They estimate that he may be safe to be discharged prior to March 30. Continues to need improvement for his transfers and endurance. His hand is getting stronger. (2) Swelling of joint, hand, right Current Visit: Yes Status: Acute Assessment and plan: Less swelling and redness in the right thumb. No new intervention. (3) Atrial fibrillation Current Visit: Yes Status: Chronic Assessment and plan: Chronic atrial fibrillation without angina or CHF. He is anticoagulated. His rate is controlled. 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 This affects his hands as well. The additional stroke on the right side hinders his right hand use, but it is improving (5) Coronary artery disease Current Visit: Yes Status: Chronic Assessment and plan: No angina or CHF. Qualifiers: Coronary Disease-Associated Artery/Lesion type: unspecified vessel or lesion type [place] vs. transplanted heart: [place] heart Associated angina: without angina Qualified Code(s): I25.10 - Atherosclerotic heart disease of [place] coronary artery without angina pectoris (6) Hypertension Current Visit: Yes Status: Chronic Assessment and plan: Blood pressures typically under good control. Occasionally he will have systolic pressures in the 150s. Qualifiers: Hypertension type: essential hypertension Qualified Code(s): I10 - Essential (primary) hypertension (7) Obstructive sleep apnea treated with BiPAP Current Visit: Yes Status: Chronic Assessment and plan: He continues to use his BiPAP machine at nighttime. (8) On apixaban therapy Current Visit: No Status: Acute (9) Constipation Current Visit: Yes Status: Resolved Qualifiers: Constipation type: other constipation type Qualified Code(s): K59.09 - Other constipation (10) Bilateral lower extremity edema Current Visit: Yes Status: Acute Assessment and plan: Continued swelling of both lower extremities. The left is worse than the right chronically. This is been a chronic problem, but worsened since his stroke and hospitalization. We are trying to gently diurese with Lasix. He prefers to use it at nighttime. We will attempt to get elastic stockings on his feet. I have asked therapy to have the lymphedema therapist see him as well. He was weighed today on the standup bariatric skills and weighs 248 pounds (113 kg) as opposed to his admission weight 106 kg as measured on bed scales. (there may be a difference in the scales). I suggested to staff that he use the standup bariatric scales, wearing his braces for consistency in follow-up for diuresis. - Subjective Interval history: Patient thinks that he continues to improve. Therapy says he is walking better. His legs tire out if he does sit too long or stands too long. Transfers are still the biggest issue. Right hand is improving and right leg is better but still tires easily. He denies any cardiac symptoms. He denies any respiratory symptoms. His lower extremity's are still swollen. He prefers to use a Lasix at nighttime so he can be in bed and use the urinal and less need to get up and down. He has been unable to use elastic stockings at home because they are too tight to get over his legs. - Constitutional Vitals: Temp Pulse Resp BP Pulse Ox 97.4 F L 93 16 156/70 97 03/23/18 07:00 03/23/18 07:00 03/23/18 07:00 03/23/18 07:00 03/23/18 07:00 General appearance: Present: A&O X 3, no acute distress - Respiratory Respiratory exam: Present: CTAB - Cardiovascular Cardiovascular exam: Present: irregular rhythm, +S1, +S2 - Extremities Exam Additional comments: Both lower extremities continue to be swollen. I did not take off his socks, braces and shoes to evaluate though. The left is always larger than the right. He reports no skin breakdown. - Neurological Exam Neurological exam: Present: CN II-XII intact, oriented X3. Absent: facial droop Additional comments: His chronic CMT changes in all extremities. His hand grasp is decreased bilaterally. When standing up from a chair and turning around and using his walker his right lower extremity is weaker than the left and has morbidly foot drop. Has difficulties pivoting with the right lower extremity. He is ambulating with his Rollator with assistance with a gait belt for safety. Internal Medicine: Result - Labs CBC & Chem 7: 03/18/18 09:59 03/22/18 05:40 Consult Discharge Plan - Plan Referrals: Tee Gasca MD [Primary Care Provider] -
[2018-03-23] MEDS: Multivit/Ca/Min/Fe/FA 1 TAB TABLET PO SCH (10:07)
[2018-03-23] MEDS: amLODIPine 5 MG TABLET PO SCH (10:07)
[2018-03-23] MEDS: Pregabalin 75 MG CAPSULE PO SCH ×2 (10:07→20:46)
[2018-03-23] MEDS: Apixaban 2.5 MG TABLET PO SCH ×2 (10:07→20:45)
[2018-03-23] MEDS: Famotidine 20 MG TABLET PO SCH ×2 (10:07→20:46)
--- NOTE | 2018-03-23 18:48 | Physical Med Progress Note ---
Date of Encounter: 03/23/18 Time of Encounter: 18:15 Assessment and Plan (1) Cerebrovascular accident Current Visit: Yes Status: Acute Assessment and plan: Good progress. Still needs CGA to min with sit to stand. Continue rehab. [facility] 02-27-2018. 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 BLE AFOs Continue rehab Physical Medicine-PN: Subj Interval history: No c/o - Constitutional Vitals: Vital Signs Temp Pulse Resp BP Pulse Ox 03/23/18 07:00 97.4 F L 93 16 156/70 97 03/22/18 19:17 97.9 F 72 13 128/76 100 Intake and Output 03/23/18 03/23/18 03/23/18 07:59 15:59 23:59 Intake Total 300 / 300 980 / 980 360 / 360 Output Total 500 / 500 Balance -200 / -200 980 / 980 360 / 360 Intake: Oral 300 / 300 980 / 980 360 / 360 Output: Urine 500 / 500 Other: Meal Lunch Dinner Percent of Meal Consumed 75% 100% # Voids 1 - Extremities Exam Additional comments: Good handgrasp, 4-/5 finger and wrist extension. Minimal opposition right hand. partial on right. No edema in the hands. - Neurological Exam Neurological exam: Present: abnormal gait, alert, motor sensory deficit, oriented X3 Physical Medicine-PN: Obj Data - Labs CBC & Chem 7: 03/18/18 09:59 03/22/18 05:40 Consult Discharge Plan - Plan Referrals: Tee Gasca MD [Primary Care Provider] -
[2018-03-23] MEDS: Furosemide 20 MG TABLET PO PRN (20:46)
[2018-03-24] MEDS: Pregabalin 75 MG CAPSULE PO SCH ×2 (08:45→20:41)
[2018-03-24] MEDS: amLODIPine 5 MG TABLET PO SCH (08:45)
[2018-03-24] MEDS: Multivit/Ca/Min/Fe/FA 1 TAB TABLET PO SCH (08:45)
[2018-03-24] MEDS: Famotidine 20 MG TABLET PO SCH ×2 (08:46→20:42)
[2018-03-24] MEDS: Apixaban 2.5 MG TABLET PO SCH ×2 (08:46→20:41)
--- NOTE | 2018-03-24 13:50 | Internal Med Progress Note ---
Date of Encounter: 03/24/18 Time of Encounter: 08:20 - Assessment and plan (1) Cerebrovascular accident Current Visit: Yes Status: Acute Assessment and plan: here for rehab. 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 transplanted heart: [place] heart Associated angina: without angina Qualified Code(s): I25.10 - Atherosclerotic heart disease of [place] coronary artery without angina pectoris (5) Hypertension Current Visit: Yes Status: Chronic Assessment and plan: has improved will continue with current medications Qualifiers: Hypertension type: essential hypertension Qualified Code(s): I10 - Essential (primary) hypertension (6) Obstructive sleep apnea treated with BiPAP Current Visit: Yes Status: Chronic Assessment and plan: continue with home bipap (7) Constipation Current Visit: Yes Status: Resolved Assessment and plan: on his usual home pattern Qualifiers: Constipation type: other constipation type Qualified Code(s): K59.09 - Other constipation (8) Hypokalemia Current Visit: Yes Status: Acute (9) Bilateral lower extremity edema Current Visit: Yes Status: Acute Assessment and plan: added unna boots today because the regular compression wraps will not allow his afo's to be worn - Subjective Interval history: he is feeling pretty good today. getting stronger. still wears out and having the wheelchair behind him when he walks. still working on transfers. no cp, no sob, no dizzy, no n/v, good appetite, bowels and bladder ok. still with edema. had melissa boot put on because there was concern the typical wraps for edema would prevent him from getting his afo's on. no pain. did have some nasal congestion after using his cpap - Constitutional Vitals: Temp Pulse Resp BP Pulse Ox 97.5 F L 60 19 133/72 98 03/24/18 07:49 03/24/18 07:49 03/24/18 07:49 03/24/18 07:49 03/24/18 07:49 General appearance: Present: A&O X 3, no acute distress - Head Head exam: Present: atraumatic, normocephalic - Neck Neck exam general surgery: Present: supple, trachea midline - Respiratory Respiratory exam: Present: CTAB - Cardiovascular Cardiovascular exam: Present: RRR, +S1, +S2. Absent: systolic murmur - GI/Abdominal GI/Abdominal exam: Present: normal bowel sounds, soft, no peritoneal signs. Absent: distended, guarding, mass, tenderness - Extremities Exam Extremities exam: Present: pedal edema (with melissa boots and rachel and afo on), warm. Absent: full ROM (contractures of the left hand) - Neurological Exam Neurological exam: Present: alert. Absent: strengths equal and symetr throughout (4/5 right upper and lower ext. the right hand/arm weakness is very small) - Skin Skin exam: Present: dry, warm Internal Medicine: Result - Labs CBC & Chem 7: 03/18/18 09:59 03/22/18 05:40 - VTE Documentation of Mechanical Device: Graduated compression elastic hosiery Consult Discharge Plan - Plan Referrals: Tee Gasca MD [Primary Care Provider] -
[2018-03-24] MEDS: Furosemide 20 MG TABLET PO PRN (20:42)
[2018-03-25] MEDS: Apixaban 2.5 MG TABLET PO SCH ×2 (08:02→19:54)
[2018-03-25] MEDS: amLODIPine 5 MG TABLET PO SCH (08:02)
[2018-03-25] MEDS: Multivit/Ca/Min/Fe/FA 1 TAB TABLET PO SCH (08:02)
[2018-03-25] MEDS: Pregabalin 75 MG CAPSULE PO SCH ×2 (08:03→19:55)
[2018-03-25] MEDS: Famotidine 20 MG TABLET PO SCH ×2 (08:07→19:55)
--- NOTE | 2018-03-25 08:30 | Internal Med Progress Note ---
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 transplanted heart: [place] heart Associated angina: without angina Qualified Code(s): I25.10 - Atherosclerotic heart disease of [place] coronary artery without angina pectoris (5) Hypertension Current Visit: Yes Status: Chronic Assessment and plan: has improved will continue with current medications Qualifiers: Hypertension type: essential hypertension Qualified Code(s): I10 - Essential (primary) hypertension (6) Obstructive sleep apnea treated with BiPAP Current Visit: Yes Status: Chronic Assessment and plan: continue with home bipap (7) Constipation Current Visit: Yes Status: Resolved Assessment and plan: on his usual home pattern declines additional medication Qualifiers: Constipation type: other constipation type Qualified Code(s): K59.09 - Other constipation (8) Hypokalemia Current Visit: Yes Status: Acute Assessment and plan: will repeat the bmp tomorrow (9) Bilateral lower extremity edema Current Visit: Yes Status: Acute Assessment and plan: added unna boots yesterday because the regular compression wraps will not allow his afo's to be worn, not much change. getting lasix at night - Subjective Interval history: he is feeling pretty good today. yesterday he took a shower and did therapy and his right leg was really weak after. had a hard time supporting himself with the weakness. still working on transfers. no cp, no sob, no dizzy, no n /v, good appetite, bladder ok. did not have a stool yesterday. declines additional medication for this still with edema. has melissa boots edema remains the same. still fits his AROs. no pain. - Constitutional Vitals: Temp Pulse Resp BP Pulse Ox 97.5 F L 71 16 131/77 100 03/25/18 07:50 03/25/18 07:50 03/25/18 07:50 03/25/18 07:50 03/25/18 07:50 General appearance: Present: A&O X 3, no acute distress, answers questions appropriately - Head Head exam: Present: atraumatic, normocephalic - Neck Neck exam general surgery: Present: supple, trachea midline. Absent: lymphadenopathy - Respiratory Respiratory exam: Present: CTAB - Cardiovascular Cardiovascular exam: Present: RRR, +S1, +S2. Absent: systolic murmur - GI/Abdominal GI/Abdominal exam: Present: normal bowel sounds, soft, no peritoneal signs. Absent: distended, guarding, tenderness - Extremities Exam Extremities exam: Present: pedal edema (unna boots bilateral and afos on), warm - Neurological Exam Neurological exam: Present: strengths equal and symetr throughout (right 4/5 left 5/5 upper and lower) - Skin Skin exam: Present: dry, warm. Absent: rash Internal Medicine: Result - Labs CBC & Chem 7: 03/18/18 09:59 03/22/18 05:40 - VTE Documentation of Mechanical Device: Graduated compression elastic hosiery Consult Discharge Plan - Plan Referrals: Tee Gasca MD [Primary Care Provider] -
[2018-03-25] MEDS: Furosemide 20 MG TABLET PO PRN (19:56)
[2018-03-26 05:12] LABS: Basophils % 0.1 %; Eosinophils # 0.3 K/mcL (0.0-0.6); Eosinophils % 3.5 %; Hematocrit 29.7 % (37.5-50.1); Immature Granulocytes % 0.1 % (0-4); Lymphocytes # 1.8 K/mcL (0.6-4.6); Lymphocytes % 20.8 %; Mean Corpuscular HGB Conc 33.7 g/dL (31.6-35.5); Mean Corpuscular Hemoglobin 29.9 pg (28.0-33.3); Mean Corpuscular Volume 88.7 fL (83.0-100.0); Mean Platelet Volume 10.8 fL (9.4-12.4); Monocytes # 0.6 K/mcL (0.0-1.3); Monocytes % 6.3 %; Neutrophils # 6.1 K/mcL (1.6-8.9); Platelet Count 221 K/mcL (140-400); Red Blood Count 3.35 M/mcL (4.19-5.50); Red Cell Distribution Width 14.3 % (11.5-14.5); Segmented Neutrophils % 69.2 %
[2018-03-26 05:29] LABS: BUN/Creatinine Ratio 24 (6-26); Blood Urea Nitrogen 19 mg/dL (8-23); Calcium 8.3 mg/dL (8.6-10.3); Carbon Dioxide 29 mEq/L (23-29); Chloride 102 mEq/L (98-107); Glucose 102 mg/dL (70-105); Osmolality,Calculated 284 (280-300); Potassium 3.4 mEq/L (3.5-5.1); Sodium 136 mEq/L (136-145); eGFR For African Americans > 60 (> 60); eGFR For Non-African Americans > 60 (> 60)
[2018-03-26] MEDS: Apixaban 2.5 MG TABLET PO SCH ×2 (09:18→21:05)
[2018-03-26] MEDS: Famotidine 20 MG TABLET PO SCH ×2 (09:18→21:07)
[2018-03-26] MEDS: Pregabalin 75 MG CAPSULE PO SCH ×2 (09:18→21:07)
[2018-03-26] MEDS: Multivit/Ca/Min/Fe/FA 1 TAB TABLET PO SCH (09:18)
[2018-03-26] MEDS: amLODIPine 5 MG TABLET PO SCH (09:18)
--- NOTE | 2018-03-26 12:12 | Internal Med Progress Note ---
Date of Encounter: 03/26/18 Time of Encounter: 12:12 - Assessment and plan (1) Cerebrovascular accident Current Visit: Yes Status: Acute Assessment and plan: here for rehab. 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 transplanted heart: [place] heart Associated angina: without angina Qualified Code(s): I25.10 - Atherosclerotic heart disease of [place] coronary artery without angina pectoris (5) Hypertension Current Visit: Yes Status: Chronic Assessment and plan: has improved will continue with current medications Qualifiers: Hypertension type: essential hypertension Qualified Code(s): I10 - Essential (primary) hypertension (6) Obstructive sleep apnea treated with BiPAP Current Visit: Yes Status: Chronic Assessment and plan: continue with home bipap (7) Constipation Current Visit: Yes Status: Resolved Assessment and plan: on his usual home pattern declines additional medication Qualifiers: Constipation type: other constipation type Qualified Code(s): K59.09 - Other constipation (8) Hypokalemia Current Visit: Yes Status: Acute Assessment and plan: it was low and will increase the potassium (9) Bilateral lower extremity edema Current Visit: Yes Status: Acute Assessment and plan: he is wearing his melissa boots because the regular compression wraps will not allow his afo's to be worn, not much change. getting lasix at night, but not improving will increase his dose - Subjective Interval history: he is feeling pretty good today. doing heis therapy. looking forward to going home. still working on transfers. no cp, no sob, no dizzy, no n/v, good appetite, bladder ok. occ will feel the afib. has melissa boots edema remains the same. he has not seen improvement. still fits his AROs. no pain. - Constitutional Vitals: Temp Pulse Resp BP Pulse Ox 98.0 F 76 16 147/81 96 03/26/18 07:11 03/26/18 07:11 03/26/18 07:11 03/26/18 07:11 03/26/18 07:11 General appearance: Present: A&O X 3, no acute distress, answers questions appropriately - Head Head exam: Present: atraumatic, normocephalic - Neck Neck exam general surgery: Present: supple, trachea midline - Respiratory Respiratory exam: Present: CTAB - Cardiovascular Cardiovascular exam: Present: RRR, +S1, +S2. Absent: systolic murmur - GI/Abdominal GI/Abdominal exam: Present: normal bowel sounds, soft, no peritoneal signs. Absent: distended, guarding, tenderness - Extremities Exam Extremities exam: Present: pedal edema (with melissa boots and afo) Internal Medicine: Result - Labs CBC & Chem 7: 03/26/18 04:50 03/26/18 04:50 Labs: Short CBC 03/26/18 Range/Units 04:50 WBC 8.8 (4.3-11.1) K/mcL Hgb 10.0 L (12.9-16.9) g/dL Hct 29.7 L (37.5-50.1) % Plt Count 221 (140-400) K/mcL Neutrophils # 6.1 (1.6-8.9) K/mcL BMP 03/26/18 04:50 Sodium 136 Potassium 3.4 L Chloride 102 Carbon Dioxide 29 BUN 19 Creatinine 0.80 Glucose 102 Calcium 8.3 L - VTE Documentation of Mechanical Device: Graduated compression elastic hosiery Consult Discharge Plan - Plan Referrals: Tee Gasca MD [Primary Care Provider] -
[2018-03-26] MEDS: Furosemide 40 MG TABLET PO PRN (21:03)
[2018-03-27] MEDS: amLODIPine 5 MG TABLET PO SCH (09:06)
[2018-03-27] MEDS: Pregabalin 75 MG CAPSULE PO SCH ×2 (09:06→21:48)
[2018-03-27] MEDS: Furosemide 40 MG TABLET PO PRN ×2 (09:07→21:48)
[2018-03-27] MEDS: Apixaban 2.5 MG TABLET PO SCH ×2 (09:07→21:47)
[2018-03-27] MEDS: Multivit/Ca/Min/Fe/FA 1 TAB TABLET PO SCH (09:07)
[2018-03-27] MEDS: Famotidine 20 MG TABLET PO SCH ×2 (09:07→21:45)
--- NOTE | 2018-03-27 11:27 | Internal Med Progress Note ---
Date of Encounter: 03/27/18 Time of Encounter: 11:26 - Assessment and plan (1) Cerebrovascular accident Current Visit: Yes Status: Acute Assessment and plan: here for rehab. 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 transplanted heart: [place] heart Associated angina: without angina Qualified Code(s): I25.10 - Atherosclerotic heart disease of [place] coronary artery without angina pectoris (5) Hypertension Current Visit: Yes Status: Chronic Assessment and plan: has improved will continue with current medications Qualifiers: Hypertension type: essential hypertension Qualified Code(s): I10 - Essential (primary) hypertension (6) Obstructive sleep apnea treated with BiPAP Current Visit: Yes Status: Chronic Assessment and plan: continue with home bipap (7) Constipation Current Visit: Yes Status: Resolved Assessment and plan: on his usual home pattern declines additional medication Qualifiers: Constipation type: other constipation type Qualified Code(s): K59.09 - Other constipation (8) Hypokalemia Current Visit: Yes Status: Acute (9) Bilateral lower extremity edema Current Visit: Yes Status: Acute Assessment and plan: he is wearing his melissa boots because the regular compression wraps will not allow his afo's to be worn, increased dose of prn lasix yesterday, will retry the rachel hose - Subjective Interval history: he is feeling pretty good today. walked down to the er and back today. did rest at the ER. no cp, no sob, no dizzy, no n/v, good appetite, bladder ok. no palp. has melissa boots edema remains the same, but legs feel softer today. he has not seen improvement. still fits his AROs. no pain. - Constitutional Vitals: Temp Pulse Resp BP Pulse Ox 98.3 F 55 16 122/70 96 03/27/18 07:00 03/27/18 07:00 03/27/18 07:00 03/27/18 07:00 03/27/18 07:00 General appearance: Present: A&O X 3, no acute distress, answers questions appropriately - Head Head exam: Present: atraumatic, normocephalic - Neck Neck exam general surgery: Present: supple, trachea midline. Absent: lymphadenopathy - Respiratory Respiratory exam: Present: CTAB - Cardiovascular Cardiovascular exam: Present: irregular rhythm, +S1, +S2. Absent: systolic murmur - GI/Abdominal GI/Abdominal exam: Present: normal bowel sounds, soft, no peritoneal signs. Absent: distended, guarding, tenderness - Extremities Exam Extremities exam: Present: pedal edema (afo in place legs softer today but still remain wih the edema) - Neurological Exam Neurological exam: Present: strengths equal and symetr throughout (right 4/5) - Skin Skin exam: Present: dry, warm Internal Medicine: Result - Labs CBC & Chem 7: 03/26/18 04:50 03/26/18 04:50 - VTE Documentation of Mechanical Device: Graduated compression elastic hosiery Consult Discharge Plan - Plan Referrals: Tee Gasca MD [Primary Care Provider] -
--- NOTE | 2018-03-28 07:51 | Internal Med Progress Note ---
Date of Encounter: 03/28/18 Time of Encounter: 07:48 - Assessment and plan (1) Cerebrovascular accident Current Visit: Yes Status: Acute Assessment and plan: He is showing improvement with his right hemiplegia and tentative discharge date is tomorrow. Still has some difficulties with right lower sternal weakness and with transfers. We talked about the importance of safety visit tomorrow as well (2) Swelling of joint, hand, right Current Visit: Yes Status: Acute (3) Atrial fibrillation Current Visit: Yes Status: Chronic Assessment and plan: Rate controlled. Anticoagulated. No angina or CHF noted. 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 Qualifiers: Coronary Disease-Associated Artery/Lesion type: unspecified vessel or lesion type [place] vs. transplanted heart: [place] heart Associated angina: without angina Qualified Code(s): I25.10 - Atherosclerotic heart disease of [place] coronary artery without angina pectoris (6) Hypertension Current Visit: Yes Status: Chronic Qualifiers: Hypertension type: essential hypertension Qualified Code(s): I10 - Essential (primary) hypertension (7) Obstructive sleep apnea treated with BiPAP Current Visit: Yes Status: Chronic (8) On apixaban therapy Current Visit: No Status: Acute (9) Constipation Current Visit: Yes Status: Resolved Qualifiers: Constipation type: other constipation type Qualified Code(s): K59.09 - Other constipation (10) Bilateral lower extremity edema Current Visit: Yes Status: Acute Assessment and plan: The edema lower carries appears to be improved. He had much better urine output last night. We will continue the increased diuresis with Lasix twice a day until discharge. Follow-up lab work ordered for tomorrow. - Subjective Interval history: Patient continues to be stronger and improved. Tentative discharge date is tomorrow. This weekend he was able to walk to the emergency room entrance. He is happy that he is having less swelling in his ankles and feet now. He denies any cardiac or respiratory symptoms. He said that a sore area on his occipital scalp region and he thought that might be from the stroke. He notices it when he lies in bed. - Constitutional Vitals: Temp Pulse Resp BP Pulse Ox 97.6 F 63 16 122/63 96 03/28/18 07:00 03/28/18 07:00 03/28/18 07:00 03/28/18 07:00 03/28/18 07:00 General appearance: Present: A&O X 3, no acute distress, answers questions appropriately - Head Additional comments: In the occipital area is a tender region without lesion or signs of trauma. - Respiratory Respiratory exam: Present: CTAB - Cardiovascular Cardiovascular exam: Present: irregular rhythm, +S1, +S2 - Extremities Exam Additional comments: Even though his extremities are in the ELLA hose and socks and shoes and splints , it appears he is having less edema. Internal Medicine: Result - Labs CBC & Chem 7: 03/26/18 04:50 03/26/18 04:50 Labs: Labs have been reviewed. - VTE Documentation of Mechanical Device: Graduated compression elastic hosiery Consult Discharge Plan - Plan Referrals: Tee Gasca MD [Primary Care Provider] -
[2018-03-28] MEDS: Apixaban 2.5 MG TABLET PO SCH ×2 (08:07→20:46)
[2018-03-28] MEDS: Famotidine 20 MG TABLET PO SCH ×2 (08:07→20:46)
[2018-03-28] MEDS: Multivit/Ca/Min/Fe/FA 1 TAB TABLET PO SCH (08:07)
[2018-03-28] MEDS: Pregabalin 75 MG CAPSULE PO SCH ×2 (08:08→20:46)
[2018-03-28] MEDS: Furosemide 40 MG TABLET PO PRN ×2 (08:08→20:47)
[2018-03-28] MEDS: amLODIPine 5 MG TABLET PO SCH (08:08)
[2018-03-29 06:49] LABS: Basophils % 0.6 %; Eosinophils # 0.2 K/mcL (0.0-0.6); Eosinophils % 3.4 %; Hematocrit 33.6 % (37.5-50.1); Hemoglobin 11.2 g/dL (12.9-16.9); Immature Granulocytes % 0.4 % (0-4); Lymphocytes # 1.7 K/mcL (0.6-4.6); Lymphocytes % 23.7 %; Mean Corpuscular HGB Conc 33.3 g/dL (31.6-35.5); Mean Corpuscular Hemoglobin 29.1 pg (28.0-33.3); Mean Corpuscular Volume 87.3 fL (83.0-100.0); Mean Platelet Volume 10.4 fL (9.4-12.4); Monocytes # 0.6 K/mcL (0.0-1.3); Monocytes % 8.7 %; Neutrophils # 4.5 K/mcL (1.6-8.9); Platelet Count 220 K/mcL (140-400); Red Blood Count 3.85 M/mcL (4.19-5.50); Red Cell Distribution Width 14.3 % (11.5-14.5); Segmented Neutrophils % 63.2 %
[2018-03-29 07:39] LABS: BUN/Creatinine Ratio 19 (6-26); Blood Urea Nitrogen 14 mg/dL (8-23); Calcium 8.9 mg/dL (8.6-10.3); Carbon Dioxide 29 mEq/L (23-29); Chloride 102 mEq/L (98-107); Glucose 111 mg/dL (70-105); Osmolality,Calculated 287 (280-300); Potassium 3.2 mEq/L (3.5-5.1); Sodium 138 mEq/L (136-145); eGFR For African Americans > 60 (> 60); eGFR For Non-African Americans > 60 (> 60)
[2018-03-29] MEDS: Apixaban 2.5 MG TABLET PO SCH (08:12)
[2018-03-29] MEDS: Famotidine 20 MG TABLET PO SCH (08:12)
[2018-03-29] MEDS: amLODIPine 5 MG TABLET PO SCH (08:12)
[2018-03-29] MEDS: Pregabalin 75 MG CAPSULE PO SCH (08:12)
[2018-03-29] MEDS: Multivit/Ca/Min/Fe/FA 1 TAB TABLET PO SCH (08:12)
[2018-03-29 08:53] VITALS: BP 135/74
--- NOTE | 2018-03-29 08:59 | Discharge Summary ---
- NOTES TO OUTPATIENT PROVIDER Notes to Outpatient Provider: #1. 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 His main complaint was right upper and lower extremity weakness and difficulties with transfer. His slurred speech had nearly completely resolved. He underwent PT, OT, RT and speech therapy and advanced nicely. One of the last things to improve was transfers from bed to chair, standing and pivoting etc. He is now able to ambulate down to the ER and back, getting independent with his transfers and therapy department thinks he is ready for home. He will have a home safety visit today. He will follow-up with his neurologist Dr. Rubio soon. His Eliquis had been increased from 2.5 twice a day to 5 mg twice a day by [facility]. (2) Swelling of joint, hand, right Priority: Secondary Status: Acute Comments: Left his complaints was swelling pain and heat in the right MCP joint. He was evaluated by Dr. Galvez. X-ray showed osteoarthritis but no signs of gout or erosion. It resolved on its own. Patient thinks that he is back to his baseline. (3) Atrial fibrillation Priority: Secondary Status: Chronic Comments: Patient chronically has atrial fibrillation and his rate control. He is anticoagulated with Eliquis. He has had no angina or CHF symptoms. 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 He feels that he is at his baseline regarding ADLs following his stroke. (5) Coronary artery disease Priority: Secondary Status: Chronic Comments: Patient has history of known coronary artery disease as well as atrial fibrillation. He has had no angina or CHF during this stay. Qualifiers: Coronary Disease-Associated Artery/Lesion type: unspecified vessel or lesion type [place] vs. transplanted heart: [place] heart Associated angina: without angina Qualified Code(s): I25.10 - Atherosclerotic heart disease of [place] coronary artery without angina pectoris (6) Hypertension Priority: Secondary Status: Chronic Comments: Patient has a history of long-standing hypertension. Following his transfer for from [facility] his triamterene-hydrochlorothiazide was held. His blood pressure readings have been under good control while in the hospital. Qualifiers: Hypertension type: essential hypertension Qualified Code(s): I10 - Essential (primary) hypertension (7) Obstructive sleep apnea treated with BiPAP Priority: Secondary Status: Chronic Comments: Continues with his BiPAP machine while in the hospital. (8) On apixaban therapy Priority: Secondary Status: Acute Comments: Patient's anticoagulation with Eliquis was increased from 2.5 twice a day to 5 mg twice a day by [facility]. (9) Constipation Priority: Secondary Status: Resolved Qualifiers: Constipation type: other constipation type Qualified Code(s): K59.09 - Other constipation (10) Bilateral lower extremity edema Priority: Secondary Status: Acute Comments: Since his stroke he has had increased swelling of both lower extremities. It did not resolve with elevation. We increased his Lasix to 40 mg up to twice a day prn for swelling . His potassium dropped and we had to increase his potassium as well. He is getting diuresis, less edema and is tibial and ankle/ feet areas. He will continue the Lasix at home on a when necessary basis. Hospital course: Mr. Joshi is a 87 year old male with known history of atrial fibrillation, CMT , hypertension and sustained a CVA. He is admitted to our rehabilitation unit . Please see the above diagnoses for hospital course Discharge discussed with: family - Time Spent with Patient Total time spent providing and/or coordinating discharge services: - Discharge Medications Prescriptions: Apixaban [Eliquis] 5 mg PO BID #60 tablet Ezetimibe/Simvastatin [Vytorin 10-20 mg Tablet] 1 each PO DAILY #1 tablet Furosemide [Lasix] 40 mg PO BIDDIURETIC PRN #60 tablet PRN Reason: Edema Potassium Chloride 20 meq PO BID #60 tab.er.prt Home Medications: Calcium Carbonate [Calcium] 600 mg PO DAILY 06/29/16 [History] Cyanocobalamin (Vitamin B-12) [Vitamin B12] 5,000 mcg PO DAILY 06/29/16 [History ] Docusate Sodium [Dok] 100 mg PO DAILY 06/29/16 [History] Doxazosin Mesylate [Cardura] 2 mg PO HS 06/29/16 [History] Metoprolol [Lopressor] 25 mg PO DAILY 06/29/16 [History] Multivitamin [Multi-Day Vitamins] 1 each PO DAILY 06/29/16 [History] Pregabalin [Lyrica] 75 mg PO BID 06/29/16 [History] raNITIdine HCl [Zantac] 150 mg PO BID 06/29/16 [History] amLODIPine [Norvasc] 5 mg PO DAILY 10/05/17 [History] Apixaban [Eliquis] 5 mg PO BID #60 tablet 03/29/18 [Rx] Ezetimibe/Simvastatin [Vytorin 10-20 mg Tablet] 1 each PO DAILY #1 tablet [Rx] Furosemide [Lasix] 40 mg PO BIDDIURETIC PRN #60 tablet 03/29/18 [Rx] Potassium Chloride 20 meq PO BID #60 tab.er.prt 03/29/18 [Rx] Allergies/Adverse Reactions: 3 Allergy/AdvReac Type Severity Reaction Status Date / Time No Known Allergies Allergy Verified 10/05/17 11:04 Date of admission: 03/15/18 18:27 Primary care physician: Tee Gasca MD Consults: 03/15/18 19:00 Consult to Violin Repairer [CONS] Stat Reason for SW Consult: d/c planning 03/15/18 20:04 Consult to Occupational Therapy [CONS] Routine Comment: Evaluate, develop and implement POC Reason for Consult: Eval and Treat Does patient have active BEDREST order?: No Is patient medically & hemodynamically stable?: Yes Patient assessed for mobility or mobilized this visit?: No Consult to Physical Therapy [CONS] Routine Comment: Evaluate, develop and implement POC Reason for Consult: Eval and Treat Does patient have active BEDREST order?: No Is patient medically & hemodynamically stable?: Yes Patient assessed for mobility or mobilized this visit?: No Consult to Recreational Therapy [CONS] Routine Comment: Evaluate, develop and implement POC 03/16/18 10:28 Consult to Speech Therapy [CONS] Routine Comment: Evaluate, develop and implement POC Reason for Consult: History of CVA Call Completed: Yes 03/17/18 17:49 Consult to Physical Medicine/Rehab [CONS] Routine Reason for Consult: PM&R Call Completed: Yes Discharging clinician: Tee Gasca Anticipated date of discharge: 03/29/18 - Constitutional Vitals: Temp Pulse Resp BP Pulse Ox 98.4 F 94 16 135/74 95 03/29/18 08:52 03/29/18 08:52 03/29/18 08:52 03/29/18 08:52 03/29/18 08:52 General appearance: Present: A&O X 3, no acute distress, answers questions appropriately - Respiratory Respiratory exam: Present: CTAB - Cardiovascular Cardiovascular exam: Present: irregular rhythm, +S1, +S2 - Extremities Exam Additional comments: Some residual edema of the bilateral lower extremities, left is always worse than the right. Less edema since diuresis. He is able to wear his splints and stockings and shoes today. - Neurological Exam Additional comments: Chronically has extreme muscle wasting of his upper extremities particular to hands. He is wearing splints on lower extremities. The atrophy is from CMT. He feels that he is basically back to baseline strength horne and his ADLs since his CVA. - Patient Status Disposition: Home Health Service Condition: Good Functional capacity at discharge: uses cane/walker Overall status at discharge: patient is progressing back to baseline - Discharge Instructions Follow Up With: Mamadou Rubio MD [Partnered Physician] - Tee Gasca MD [Primary Care Provider] - 04/08/18 10:30 am - VTE Documentation of Mechanical Device: Graduated compression elastic hosiery
--- NOTE | 2018-03-29 09:28 | Physician Discharge Referral ---
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 For more information, call the [place] Tobacco Quit Line at 9-257-CESP-NOW. - Diet/Nutrition Diet/Nutrition Orders: No Added Salt (MICHAELA) - Activity Activity Orders: Walker - Services Needed Following services are medically necessary services: Nursing, Physical Therapy, Occupational Therapy - Transfer Medications Prescriptions: Apixaban [Eliquis] 5 mg PO BID #60 tablet Ezetimibe/Simvastatin [Vytorin 10-20 mg Tablet] 1 each PO DAILY #1 tablet Furosemide [Lasix] 40 mg PO BIDDIURETIC PRN #60 tablet PRN Reason: Edema Potassium Chloride 20 meq PO BID #60 tab.er.prt Home Medications: Calcium Carbonate [Calcium] 600 mg PO DAILY 06/29/16 [History] Cyanocobalamin (Vitamin B-12) [Vitamin B12] 5,000 mcg PO DAILY 06/29/16 [History ] Docusate Sodium [Dok] 100 mg PO DAILY 06/29/16 [History] Doxazosin Mesylate [Cardura] 2 mg PO HS 06/29/16 [History] Metoprolol [Lopressor] 25 mg PO DAILY 06/29/16 [History] Multivitamin [Multi-Day Vitamins] 1 each PO DAILY 06/29/16 [History] Pregabalin [Lyrica] 75 mg PO BID 06/29/16 [History] raNITIdine HCl [Zantac] 150 mg PO BID 06/29/16 [History] amLODIPine [Norvasc] 5 mg PO DAILY 10/05/17 [History] Apixaban [Eliquis] 5 mg PO BID #60 tablet 03/29/18 [Rx] Ezetimibe/Simvastatin [Vytorin 10-20 mg Tablet] 1 each PO DAILY #1 tablet [Rx] Furosemide [Lasix] 40 mg PO BIDDIURETIC PRN #60 tablet 03/29/18 [Rx] Potassium Chloride 20 meq PO BID #60 tab.er.prt 03/29/18 [Rx] Allergies/Adverse Reactions: 3 Allergy/AdvReac Type Severity Reaction Status Date / Time No Known Allergies Allergy Verified 10/05/17 11:04 Certification: Further, I certify that my clinical findings support that this patient is homebound (i.e. absences from home require considerable and taxing effort and are for medical reasons or buddhism services or infrequently or short duration when for other reasons) because: Homebound Reason: Patient requires assistance of a person or device to safely leave home, Leaving home requires considerable and taxing effort due to condition Attestation: My signature below is to certify that this patient is under my care and that I, or nurse practitioner, or a physician's patent legal assistant working with me, has a face-to -face encounter with this patient.
== END 2018-03-29 10:45 | disposition home health service (06) | DRG 65 ==
LOC: INPGRE 03-15 18:27
PROVIDERS: ADMIT Family Medicine; ATTEND Family Medicine